=== PATIENT | female | born 1960 | race Caucasian/White ===

== ENCOUNTER → 2017-06-20 | Outpatient (CLI) | payer OTHER ==
--- NOTE | 2017-06-20 16:24 | RAD ---
History: Chronic left knee pain Study: Left knee three views Findings: Three views the left knee demonstrates narrowing of mild to moderate marginal spurring affe cting the medial joint compartment. Normal alignment is present and no fracture, bony destructive pro cess or joint effusion is identified. Impression: Osteoarthrosis of the medial joint compartment of the left knee. Reported By:
== END ==
LOC: RAD 11:24
PROVIDERS: ATTEND Internal Medicine
DX: M25.562 Pain in left knee (principal); M17.12 Unilateral primary osteoarthritis, left knee
CPT/HCPCS: 73560